=== PATIENT | male | born 1955 | race Caucasian/White ===

== ENCOUNTER 2017-07-15 15:12 | Emergency (ER) | END 2017-07-15 19:53 | disposition home or self-care (01) | DX: D64.9 Anemia, unspecified (principal); N17.9 Acute kidney failure, unspecified; S92.322A Displaced fracture of second metatarsal bone, left foot, initial encounter for closed fracture; R74.8 Abnormal levels of other serum enzymes; D69.6 Thrombocytopenia, unspecified; R07.9 Chest pain, unspecified; W01.0XXA Fall on same level from slipping, tripping and stumbling without subsequent striking against object, initial encounter; Y92.9 Unspecified place or not applicable; Z23 Encounter for immunization | CPT/HCPCS: 29515; 70450; 72125; 73610; 73630; 80048; 80076; 85025; 85610; 85730; 90471; 90715; 93005; 99285; J7030 ==